=== PATIENT | female | born 1955 | race African-American/Black ===

== ENCOUNTER 2016-12-18 13:00 | Emergency (ER) | payer MEDICAID, OTHER ==
[~2016-12-18] VITALS: Ht 165.1 cm; Wt 70.3 kg
[~2016-12-18 13:00] MED LIST: ALBUTEROL SULF8.5 GM INH; AMOXICILLIN500 MG ORAL; CEPHALEXIN500 MG ORAL; CIPROFLOXACIN500 M2 ORAL; CYCLOBENZAPRINE10 MG ORAL; IBUPROFEN200 M2 ORAL; IBUPROFEN600 MG ORAL; LATANOPROST2.5 ML BOTH EYES; MACROBID100 MG ORAL; NITROFURANTOIN100 M2 ORAL; NORCO 5-325 TA1 EACH ORAL; PHENAZOPYRIDIN100 MG ORAL; PREVACID15 MG ORAL; PROMETHAZINE-D118 ML ORAL; TRAMADOL HCL50 MG ORAL; TYLENOL325 MG ORAL
[2016-12-18] MEDS ORDERED: Dicyclomine HCl 10mg/5ml oral soln ORAL ONE (13:30)
[2016-12-18] MEDS ORDERED: Mylanta II UD 30ml ORAL ONE (13:30)
[2016-12-18] MEDS ORDERED: Norco 10mg/325mg tab ORAL ONE (13:30)
[2016-12-18 13:48] LABS: MEAN CORPUSCULAR HEMOGLOBIN 27.1 PG (27.0-31.0); MEAN CORPUSCULAR HGB CONC 31.9 G/DL (32.0-36.0); MEAN CORPUSCULAR VOLUME 85 FL (80-99); MEAN PLATELET VOLUME 6.5 FL (6.5-10.1); PLATELET COUNT 228 K/UL (150-450); RED BLOOD COUNT 4.68 M/UL (4.20-5.40); RED CELL DISTRIBUTION WIDTH 11.7 % (11.6-14.8); WHITE BLOOD COUNT 2.6 K/UL (4.8-10.8)
[2016-12-18 13:50] VITALS: BP 138/66
[2016-12-18 14:14] LABS: TROPONIN I < 0.30 ng/mL (<=0.30)
[2016-12-18 14:17] LABS: ALANINE AMINOTRANSFERASE 90 U/L (3-33); ALBUMIN/GLOBULIN RATIO 1.5 (1.0-2.7); ANION GAP 14 (5-15); ASPARTATE AMINO TRANSFERASE 64 U/L (5-40); CALCIUM 9.2 mg/dL (8.6-10.2); CARBON DIOXIDE 26 mEQ/L (20-30); CHLORIDE 101 mEQ/L (98-107); CREATININE 0.8 mg/dL (0.5-0.9); GLOMERULAR FILTRATION RATE > 60 mL/min (>60); HEMOLYSIS 11; POTASSIUM 3.6 mEQ/L (3.4-4.9); SODIUM 141 mEQ/L (135-145); TOTAL PROTEIN 6.6 g/dL (6.6-8.7)
[2016-12-18 14:27] LABS: CKMB < 1.5 ng/mL (< 3.8)
[2016-12-18 14:33] LABS: BAND NEUTROPHILS % (MANUAL) 0 % (0-8); BASOPHILS % (MANUAL) 0 % (0-2); EOSINOPHILS % (MANUAL) 4 % (0-3); HYPOCHROMASIA 1+; LYMPHOCYTES % (MANUAL) 46 % (20-45); NEUTROPHILS % (MANUAL) 37 % (45-75); PLATELET ESTIMATE ADEQUATE; PLATELET MORPHOLOGY NORMAL; TOTAL CELLS COUNTED 100
[2016-12-18] MEDS ORDERED: ULTRAM50 MG ORAL (14:36)
[2016-12-18] MEDS ORDERED: PEPCID40 MG PO (14:36)
[2016-12-18 15:20] VITALS: BP 138/66
--- NOTE | 2016-12-19 07:17 | Emergency Room Report ---
History of Present Illness General Chief Complaint: Back Pain-No Injury Source: Patient Present Illness HPI Patient presents with complaints of mid back pain radiation towards the mid abdominal area Patient reports a sharp pain Denies any vomiting or diarrhea denies any fevers Patient reports that recently she was diagnosed by primary physician with scoliosis Denies any focal weakness There is radiation to the left upper quadrant as well Patient denies any chest pain or shortness of breath denies any dysuria frequency Allergies: Coded Allergies: No Known Allergies (Verified , 10/14/06) Patient History Past Medical History: see triage record Pertinent Family History: none Now: No Reviewed Nursing Documentation: PMH: Agreed, PSxH: Agreed Nursing Documentation-PMH Past Medical History: No Stated History Hx Cardiac Problems: Yes - THYROID Hx Hypertension: No Hx Pacemaker: No Hx Asthma: No Hx COPD: No Hx Diabetes: No Hx Cancer: No - CYST REMOVED FROM PIT[place] GL[place] Hx Gastrointestinal Problems: Yes - GERD, HERNIA SURGERY Hx Dialysis: No - HEP C Hx Neurological Problems: No Hx Cerebrovascular Accident: No Hx Seizures: No Review of Systems All Other Systems: negative except mentioned in HPI Physical Exam Vital Signs Date Time Temp Pulse Resp B/P Pulse Ox O2 Delivery O2 Flow Rate FiO2 12/18/16 13:07 98.1 78 16 140/70 98 Room Air Sp02 EP Interpretation: reviewed, normal General Appearance: well appearing, no apparent distress Head: normocephalic, atraumatic Eyes: bilateral eye EOMI, bilateral eye PERRL ENT: hearing grossly normal, normal pharynx, TMs + canals normal, uvula midline Neck: full range of motion, supple, no meningismus, no bony tend Respiratory: lungs clear, normal breath sounds, no rhonchi, no respiratory distress, no retraction, no accessory muscle use Cardiovascular #1: normal peripheral pulses, regular rate, rhythm, no edema, no gallop, no JVD, no murmur Gastrointestinal: normal bowel sounds, soft, no mass, no organomegaly, non- distended, no guarding, no hernia, no pulsatile mass, no rebound, tenderness - Palpable epigastric and left upper quadrant Genitourinary: no CVA tenderness Musculoskeletal: other - Patient subjectively has mid back pain as well lower thoracic spine T10-T11 region otherwise no midline step-off, and no paraspinal discomfort Neurologic: oriented x3, responsive, 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 as tested, motor strength/ tone normal, sensory intact Psychiatric: mood/affect normal Skin: normal color, no rash, warm/dry, palpation normal Lymphatic: normal inspection, no adenopathy Medical Decision Making Diagnostic Impression: Primary Impression: Back pain Additional Impression: abdominal pain ER Course With the history exam and presentation, multiple differentials considered, including but not limited to appendicitis, gastritis, cholecystitis, diverticulitis Patient's back discomfort also raises questions of possible vascular pathology Initial blood work is appropriate Patient has done that her there is a component of discomfort with the patient's scoliosis as well I did not obtain any further emergency imaging as the patient is otherwise stable for close outpatient followup Labs Test 12/18/16 13:35 White Blood Count 2.6 K/UL (4.8-10.8) Red Blood Count 4.68 M/UL (4.20-5.40) Hemoglobin 12.7 G/DL (12.0-16.0) Hematocrit 39.7 % (37.0-47.0) Mean Corpuscular Volume 85 FL (80-99) Mean Corpuscular Hemoglobin 27.1 PG (27.0-31.0) Mean Corpuscular Hemoglobin Concent 31.9 G/DL (32.0-36.0) Red Cell Distribution Width 11.7 % (11.6-14.8) Platelet Count 228 K/UL (150-450) Mean Platelet Volume 6.5 FL (6.5-10.1) Neutrophils (%) (Auto) % (45.0-75.0) Lymphocytes (%) (Auto) % (20.0-45.0) Monocytes (%) (Auto) % (1.0-10.0) Eosinophils (%) (Auto) % (0.0-3.0) Basophils (%) (Auto) % (0.0-2.0) Differential Total Cells Counted 100 Neutrophils % (Manual) 37 % (45-75) Lymphocytes % (Manual) 46 % (20-45) Monocytes % (Manual) 13 % (1-10) Eosinophils % (Manual) 4 % (0-3) Basophils % (Manual) 0 % (0-2) Band Neutrophils 0 % (0-8) Platelet Estimate Adequate Platelet Morphology Normal Hypochromasia 1+ Sodium Level 141 mEQ/L (135-145) Potassium Level 3.6 mEQ/L (3.4-4.9) Chloride Level 101 mEQ/L (98-107) Carbon Dioxide Level 26 mEQ/L (20-30) Anion Gap 14 (5-15) Blood Urea Nitrogen 12 mg/dL (7-23) Creatinine 0.8 mg/dL (0.5-0.9) Estimat Glomerular Filtration Rate > 60 mL/min (>60) Glucose Level 99 mg/dL (74-106) Calcium Level 9.2 mg/dL (8.6-10.2) Total Bilirubin 0.4 mg/dL (0.0-1.2) Aspartate Amino Transf (AST/SGOT) 64 U/L (5-40) Alanine Aminotransferase (ALT/SGPT) 90 U/L (3-33) Alkaline Phosphatase 57 U/L (35-104) Total Creatine Kinase 102 U/L (26-140) Creatine Kinase MB < 1.5 ng/mL (< 3.8) Creatine Kinase MB Relative Index Troponin I < 0.30 ng/mL (<=0.30) Total Protein 6.6 g/dL (6.6-8.7) Albumin 4.0 g/dL (3.5-5.2) Globulin 2.6 g/dL Albumin/Globulin Ratio 1.5 (1.0-2.7) EKG Diagnostic Results Rate: normal Rhythm: NSR ST Segments: no acute changes Rhythm Strip Diag. Results EP Interpretation: yes Rate: 62 Rhythm: NSR, no PVC's, no ectopy Last Vital Signs Date Time Temp Pulse Resp B/P Pulse Ox O2 Delivery O2 Flow Rate FiO2 12/18/16 15:20 98.1 76 16 138/66 98 Room Air Status: improved Disposition: HOME, SELF-CARE Condition: Improved Scripts Tramadol Hcl (ULTRAM*) 50 Mg Tablet 50 MG ORAL Q6H, #15 TAB 0 Refills Prov: GATO MCKEON.OSonya 12/18/16 Famotidine (PEPCID) 40 Mg Tablet 40 MG PO DAILY, #7 TAB 0 Refills Prov: GATO MCKEON.OSonya 12/18/16 Referrals: NOT CHOSEN [facility]/MD,REFERRING (PCP) Patient Instructions: Back Pain, Adult, Abdominal Pain, Adult Additional Instructions: Patient is provided with the discharge instructions notified to follow up with primary doctor in the next 2-3 days otherwise return to the er with any worsening symptoms. Please note that this report is being documented using [employer] technology. This can lead to erroneous entry secondary to incorrect interpretation by the dictating instrument. GATO MCKEON D.O. Dec 19, 2016 07:17
== END 2016-12-18 15:21 | disposition home or self-care (01) ==
LOC: EMR 14:24 → EDBD 14:24 → EMR 15:21
DX: M54.9 Dorsalgia, unspecified (principal); R10.9 Unspecified abdominal pain; M41.9 Scoliosis, unspecified; K21.9 Gastro-esophageal reflux disease without esophagitis; Z86.19 Personal history of other infectious and parasitic diseases
CPT/HCPCS: 36415; 80053; 82550; 82553; 84484; 85007; 85025; 93005; 99284

== ENCOUNTER 2017-02-06 20:16 | Emergency (ER) | payer OTHER ==
[~2017-02-06] VITALS: Ht 162.6 cm; Wt 89.8 kg
[~2017-02-06 20:16] MED LIST changes: +PEPCID40 MG PO; +ULTRAM50 MG ORAL
[2017-02-06] MEDS ORDERED: Ketorolac 60mg Inj IM ONE (21:00)
[2017-02-06] MEDS ORDERED: Norco 10mg/325mg tab ORAL ONE (21:00)
--- NOTE | 2017-02-06 21:17 | Emergency Room Report ---
History of Present Illness General Chief Complaint: Pain Source: Patient Present Illness HPI Patient present with pain to the left buttock area Radiation to the posterior thigh Patient reports pain ongoing for the past 2 days doesn't recall doing anything that let to the exacerbation Patient reports that she has had x-rays done before which her primary physician told her that scoliosis patient has also been told about sciatic problems in the past Denies any chest pain or shortness of breath denies any focal weakness pain is 8 /10 Points to the left posterior superior react crest with radiation as noted above Allergies: Coded Allergies: No Known Allergies (Verified , 10/14/06) Patient History Past Medical History: see triage record Pertinent Family History: none Reviewed Nursing Documentation: PMH: Agreed, PSxH: Agreed Nursing Documentation-PMH Hx Cardiac Problems: Yes - THYROID Hx Hypertension: No Hx Pacemaker: No Hx Asthma: No Hx COPD: No Hx Diabetes: No Hx Cancer: No - CYST REMOVED FROM [place] Hx Gastrointestinal Problems: Yes - GERD, HERNIA SURGERY Hx Dialysis: No - HEP C Hx Neurological Problems: No - SCIATICA Hx Cerebrovascular Accident: No Hx Seizures: No Review of Systems All Other Systems: negative except mentioned in HPI Physical Exam Vital Signs Date Time Temp Pulse Resp B/P Pulse Ox O2 Delivery O2 Flow Rate FiO2 02/06/17 20:22 97.7 93 18 161/81 96 Room Air Sp02 EP Interpretation: reviewed, normal General Appearance: well appearing Head: normocephalic, atraumatic Eyes: bilateral eye EOMI, bilateral eye PERRL ENT: normal pharynx Neck: full range of motion, supple Respiratory: lungs clear Cardiovascular #1: normal peripheral pulses, regular rate, rhythm, no edema Musculoskeletal: other - Patient has discomfort to palpation of the left posterior superior iliac crest, has pain with trying to leg raise on the left side otherwise neurovascularly intact Neurologic: alert, oriented x3, cupola tender III-XII nml as tested Skin: no rash Lymphatic: no adenopathy Medical Decision Making Diagnostic Impression: Primary Impression: Back pain Additional Impression: Sciatica ER Course Multiple differentials were considered Including but not limited to neurological, neurosurgical pathology Patient however has a fairly benign exam, likely in line with what appears to be likely sciatic flareup Patient has had multiple medications filled by different providers I did discuss with her the seat pain medicine prescribing campaign and the importance of close outpatient followup Chest X-Ray Diagnostic Results Chest X-Ray Ordered: No Last Vital Signs Date Time Temp Pulse Resp B/P Pulse Ox O2 Delivery O2 Flow Rate FiO2 02/06/17 20:22 97.7 93 18 161/81 96 Room Air Status: improved Disposition: HOME, SELF-CARE Condition: Improved Scripts Acetaminophen With Codeine (T#3) (TYLENOL #3 TAB*) Y Tab 1 TAB ORAL Q8H Y for For Pain, #10 TAB Prov: GATO MCKEON D.O. 02/06/17 Ibuprofen* (MOTRIN*) 600 Mg Tablet 600 MG ORAL Q8H Y for For Pain, #20 TAB 0 Refills Prov: GATO MCKEON D.O. 02/06/17 Additional Instructions: Patient is provided with the discharge instructions notified to follow up with primary doctor in the next 2-3 days otherwise return to the er with any worsening symptoms. Please note that this report is being documented using charity: [employer] technology. This can lead to erroneous entry secondary to incorrect interpretation by the dictating instrument. GATO MCKEON D.O. Feb 06, 2017 21:17
[2017-02-06] MEDS ORDERED: IBUPROFEN600 MG ORAL (21:18)
[2017-02-06] MEDS ORDERED: ACETAMINOPHEN-1 EAC1 ORAL (21:18)
[2017-02-06 21:28] VITALS: BP 152/84
[2017-02-06 21:30] VITALS: BP 152/84
== END 2017-02-06 21:31 | disposition home or self-care (01) ==
LOC: EMR 21:00
DX: M54.9 Dorsalgia, unspecified (principal); M54.30 Sciatica, unspecified side; K21.9 Gastro-esophageal reflux disease without esophagitis; Z86.19 Personal history of other infectious and parasitic diseases
CPT/HCPCS: 96372; 99284

== ENCOUNTER 2017-12-31 08:17 | Emergency (ER) | payer OTHER ==
[~2017-12-31] VITALS: Ht 154.9 cm; Wt 86.2 kg
[~2017-12-31 08:17] MED LIST changes: +ACETAMINOPHEN-1 EAC1 ORAL
[2017-12-31] MEDS ORDERED: Sodium Chloride 500ML 500 ML IV ONE (08:54)
[2017-12-31] MEDS ORDERED: Morphine Sulfate 4mg/ml Inj IVP ONE (09:00)
[2017-12-31] MEDS ORDERED: Isovue-300 100ml vial INJ ONE (09:00)
[2017-12-31 09:23] LABS: HEMATOCRIT 39.6 % (37.0-47.0); HEMOGLOBIN 13.1 G/DL (12.0-16.0); MEAN CORPUSCULAR VOLUME 83 FL (80-99); PLATELET COUNT 203 K/UL (150-450); RED BLOOD COUNT 4.77 M/UL (4.20-5.40); RED CELL DISTRIBUTION WIDTH 11.4 % (11.6-14.8); WHITE BLOOD COUNT 2.5 K/UL (4.8-10.8)
[2017-12-31 09:23] LABS: APPEARANCE,URINE CLEAR; BILIRUBIN, URINE NEGATIVE (NEGATIVE); COLOR,URINE PALE YELLOW; GLUCOSE, URINE (UA) NEGATIVE (NEGATIVE); KETONES,URINE NEGATIVE (NEGATIVE); LEUKOCYTE ESTERASE ,URINE 1+ (NEGATIVE); NITRITE,URINE NEGATIVE (NEGATIVE); PH,URINE 6 (4.5-8.0); PROTEIN,URINE NEGATIVE (NEGATIVE); UROBILINOGEN,URINE NORMAL MG/DL (0.0-1.0)
[2017-12-31 09:28] VITALS: BP 147/68
[2017-12-31 09:35] LABS: ANION GAP 10 mmol/L (5-15); BLOOD UREA NITROGEN 13 mg/dL (7-18); CALCIUM 9.4 MG/DL (8.5-10.1); CARBON DIOXIDE 25 MMOL/L (21-32); CHLORIDE 106 MMOL/L (98-107); CREATININE 0.7 MG/DL (0.55-1.30); POTASSIUM 4.5 MMOL/L (3.5-5.1); SODIUM 141 MMOL/L (136-145)
[2017-12-31 09:39] LABS: ALANINE AMINOTRANSFERASE 94 U/L (12-78); ALBUMIN 3.5 G/DL (3.4-5.0); ALBUMIN/GLOBULIN RATIO 0.9 (1.0-2.7); ALKALINE PHOSPHATASE 60 U/L (46-116); ASPARTATE AMINO TRANSFERASE 65 U/L (15-37); BILIRUBIN,TOTAL 0.5 MG/DL (0.2-1.0)
--- NOTE | 2017-12-31 10:34 | Emergency Room Report ---
History of Present Illness General Chief Complaint: Abdominal Pain Source: Patient Present Illness HPI 62-year-old female presents ED complaining of abdominal pain. Left upper quadrant, under the ribs, 7 out of 10, sharp, radiating to the back. On and off for the last 2 weeks. Denies chest pain or shortness of breath. Denies fevers or chills. Denies nausea or vomiting. No other aggravating or relieving factors. Denies any other associated symptoms Allergies: Coded Allergies: ASPIRIN (Verified Allergy, Unknown, 12/31/17) IBUPROFEN (Verified Allergy, Unknown, 12/31/17) Patient History Past Medical History: GERD, other - diverticulitis Past Surgical History: other - hernia repair Pertinent Family History: none Social History: Denies: smoking, alcohol use, drug use Now: No Immunizations: UTD Reviewed Nursing Documentation: PMH: Agreed; PSxH: Agreed Nursing Documentation-PMH Past Medical History: No History, Except For Hx Cardiac Problems: No Hx Hypertension: No Hx Pacemaker: No Hx Asthma: No Hx COPD: No Hx Diabetes: No Hx Cancer: No Hx Gastrointestinal Problems: Yes - GERD, HERNIA SURGERY, Diverticulitis Hx Dialysis: No - HEP C Hx Neurological Problems: No - SCIATICA Hx Cerebrovascular Accident: No Hx Seizures: No Review of Systems All Other Systems: negative except mentioned in HPI Physical Exam Vital Signs Date Time Temp Pulse Resp B/P (MAP) Pulse Ox O2 Delivery O2 Flow Rate FiO2 12/31/17 08:34 98.2 74 16 150/82 98 Room Air 98.2 Sp02 EP Interpretation: reviewed, normal General Appearance: no apparent distress, alert, GCS 15, non-toxic Head: normocephalic, atraumatic Eyes: bilateral eye normal inspection, bilateral eye PERRL ENT: hearing grossly normal, normal pharynx, no angioedema, normal voice Neck: full range of motion, supple/symm/no masses Respiratory: chest non-tender, lungs clear, normal breath sounds, speaking full sentences Cardiovascular #1: regular rate, rhythm, no edema Cardiovascular #2: 2+ carotid (R), 2+ carotid (L), 2+ radial (R), 2+ radial (L) , 2+ dorsalis pedis (R), 2+ dorsalis pedis (L) Gastrointestinal: normal bowel sounds, soft, non-distended, no guarding, no rebound, tenderness - LUQ Rectal: deferred Genitourinary: normal inspection, no CVA tenderness Musculoskeletal: back normal, gait/station normal, normal range of motion, non- tender Neurologic: alert, oriented x3, responsive, motor strength/tone normal, sensory intact, speech normal Psychiatric: judgement/insight normal, memory normal, mood/affect normal, no suicidal/homicidal ideation Reflexes: 3+ bicep (R), 3+ bicep (L), 3+ tricep (R), 3+ tricep (L), 3+ knee (R) , 3+ knee (L) Skin: normal color, no rash, warm/dry, well hydrated Lymphatic: no adenopathy Medical Decision Making Diagnostic Impression: Primary Impression: Abdominal pain Qualified Codes: R10.12 - Left upper quadrant pain ER Course Hospital Course 62-year-old F presents to ED with LUQ abdominal pain Differential diagnosis includes-appendicitis, cholecystitis, small bowel obstruction, gastritis, Clinical course Patient placed on stretcher. Reviewed EMR. Patient has been here multiple times for back pain and other pain related complaints. Patient has documented pain in the left upper quadrant previously but has been attributed to her scoliosis. After initial history and physical I ordered labs, IV fluids, pain medications and CT scan Labs - no leukocytosis, electrolytes ok, LFTs normal, UA unremarkable CT scan shows no acute pathology, L renal cyst and ventral hernia documented I discussed findings with patient. Agree the patient be safely discharged to home pending outpatient follow-up. Patient agrees with plan I feel this is a highly complex case requiring extensive working including EKG/ Rhythm strip, Xray/CT/US, Blood/urine lab work, repeat exams while in ED, and administration of strong opiates/narcotics for pain control, admission to hospital or close patient follow up. Diagnosis - abdominal pain Stable and discharged to home with Rx Tramadol. Followup with PMD. Return to ED if symptoms recur or worsen Labs Test 12/31/17 08:37 12/31/17 09:13 Urine Color Pale yellow Urine Appearance Clear Urine pH 6 (4.5-8.0) Urine Specific [place] 1.010 (1.005-1.035) Urine Protein Negative (NEGATIVE) Urine Glucose (UA) Negative (NEGATIVE) Urine Ketones Negative (NEGATIVE) Urine Occult Blood 3+ (NEGATIVE) Urine Nitrite Negative (NEGATIVE) Urine Bilirubin Negative (NEGATIVE) Urine Urobilinogen Normal MG/DL (0.0-1.0) Urine Leukocyte Esterase 1+ (NEGATIVE) Urine RBC 2-4 /HPF (0 - 2) Urine WBC 0-2 /HPF (0 - 2) Urine Squamous Epithelial Cells Few /LPF (NONE/OCC) Urine Bacteria Occasional /HPF (NONE) White Blood Count 2.5 K/UL (4.8-10.8) Red Blood Count 4.77 M/UL (4.20-5.40) Hemoglobin 13.1 G/DL (12.0-16.0) Hematocrit 39.6 % (37.0-47.0) Mean Corpuscular Volume 83 FL (80-99) Mean Corpuscular Hemoglobin 27.5 PG (27.0-31.0) Mean Corpuscular Hemoglobin Concent 33.1 G/DL (32.0-36.0) Red Cell Distribution Width 11.4 % (11.6-14.8) Platelet Count 203 K/UL (150-450) Mean Platelet Volume 6.8 FL (6.5-10.1) Neutrophils (%) (Auto) % (45.0-75.0) Lymphocytes (%) (Auto) % (20.0-45.0) Monocytes (%) (Auto) % (1.0-10.0) Eosinophils (%) (Auto) % (0.0-3.0) Basophils (%) (Auto) % (0.0-2.0) Sodium Level 141 MMOL/L (136-145) Potassium Level 4.5 MMOL/L (3.5-5.1) Chloride Level 106 MMOL/L (98-107) Carbon Dioxide Level 25 MMOL/L (21-32) Anion Gap 10 mmol/L (5-15) Blood Urea Nitrogen 13 mg/dL (7-18) Creatinine 0.7 MG/DL (0.55-1.30) Estimat Glomerular Filtration Rate > 60 mL/min (>60) Glucose Level 103 MG/DL (74-106) Calcium Level 9.4 MG/DL (8.5-10.1) Total Bilirubin 0.5 MG/DL (0.2-1.0) Aspartate Amino Transf (AST/SGOT) 65 U/L (15-37) Alanine Aminotransferase (ALT/SGPT) 94 U/L (12-78) Alkaline Phosphatase 60 U/L (46-116) Total Protein 7.4 G/DL (6.4-8.2) Albumin 3.5 G/DL (3.4-5.0) Globulin 3.9 g/dL Albumin/Globulin Ratio 0.9 (1.0-2.7) Lipase 108 U/L (73-393) CT/MRI/US Diagnostic Results CT/MRI/US Diagnostic Results : Imaging Test Ordered: CT A/P Impression 6 mm left posterior renal cyst. The kidneys are normal in size and contour. No lesion or hydronephrosis. Ventral hernia with fascial defect measuring 2 cm containing fat only. The appendix is unremarkable, as is the rest of the GI tract. Stable 10 mm calcification seen in the fundal fibroid. Last Vital Signs Date Time Temp Pulse Resp B/P (MAP) Pulse Ox O2 Delivery O2 Flow Rate FiO2 12/31/17 10:13 98.2 12/31/17 09:28 76 23 147/68 100 Room Air Status: improved Disposition: HOME, SELF-CARE Condition: Stable Scripts Tramadol Hcl* (ULTRAM*) 50 Mg Tablet 50 MG ORAL Q6H PRN for For Pain, #30 TAB 0 Refills Prov: Adonis Pantoja MD 12/31/17 Referrals: [facility]ERRED [facility],REFERRING (PCP) Adonis Pantoja MD December 31, 2017 10:34
[2017-12-31] MEDS ORDERED: TRAMADOL HCL50 MG ORAL (11:55)
[2017-12-31 12:04] VITALS: BP 132/62
--- NOTE | 2018-01-05 11:57 | Diagnostic Imaging Report ---
INDICATION: Abdominal pain TECHNIQUE: Multiple, contiguous axial cuts of the abdomen and pelvis are obtained from the lung bases to the ischial tuberosities following the administration of IV contrast. Sagittal and coronal reformatted images are available. One or more of the following dose reduction techniques were used: automated exposure control, adjustment of the mA and/or kV according to patient size, use of iterative reconstruction technique. COMPARISON: CT dated 06/16/05 FINDINGS: The lung bases are clear. The liver and spleen are normal in size and free of mass lesions. The gallbladder, bile ducts and pancreas are normal. The adrenal gland are unremarkable. 6 mm left posterior renal cyst. The kidneys are normal in size and contour. No lesion or hydronephrosis. Ventral hernia with fascial defect measuring 2 cm containing fat only. The appendix is unremarkable, as is the rest of the GI tract. Stable 10 mm calcification seen in the fundal fibroid. Aorta is normal caliber. No adenopathy or extraluminal air. The osseous structures are normal IMPRESSION: 1. 6 mm left posterior renal cyst. 2. Ventral hernia with fascial defect measuring 2 cm containing fat only. 3. Stable 10 mm calcification seen in the fundal fibroid. CTDI: 17.25 mGy DLP: 898.95 mGycm
== END 2017-12-31 12:06 | disposition home or self-care (01) ==
LOC: EMR 08:48
DX: R10.12 Left upper quadrant pain (principal); K21.9 Gastro-esophageal reflux disease without esophagitis; Z88.6 Allergy status to analgesic agent
CPT/HCPCS: 36415; 74177; 80053; 81003; 83690; 85007; 85025; 96360; 96374; 96375; 99284; J2270; J7040; Q9967

== ENCOUNTER 2018-05-10 15:17 | Emergency (ER) | payer OTHER ==
[~2018-05-10] VITALS: Ht 162.6 cm; Wt 86.2 kg
[2018-05-10] MEDS: Metoclopramide 10mg/2ml Inj IVP ONE ×2 (16:15→17:15)
--- NOTE | 2018-05-10 16:54 | Diagnostic Imaging Report ---
Indication: Headache Technique: Continuous helical CT scanning of the head was performed without intravenous contrast material. Axial and coronal 5 mm sections were generated. Radiation dose was minimized using automated exposure control Dose: Total Dose Length Product - DLP 1411.[address] Dose Index - CTDIvol(s) 70.38 mGy. Comparison: 02/18/2016 Findings: The ventricular system is normal in size and configuration. There is no shift of midline structures. No abnormal extra-axial fluid collections are noted. There is no evidence of intracerebral bleeding. No other abnormal high or low density areas are noted within the brain. Normal schneider-white differentiation. Visualized orbits and sinuses are unremarkable. The calvarium is intact. There is no significant interim change Impression: Normal CT scan of the head without contrast material. The CT scanner at [facility] is accredited by the [employer] and the scans are performed using protocols designed to limit radiation exposure to as low as reasonably achievable to attain images of sufficient resolution adequate for diagnostic evaluation.
[2018-05-10 17:11] LABS: HEMATOCRIT 41.4 % (37.0-47.0); HEMOGLOBIN 13.7 G/DL (12.0-16.0); MEAN CORPUSCULAR VOLUME 83 FL (80-99); PLATELET COUNT 245 K/UL (150-450); RED BLOOD COUNT 5.01 M/UL (4.20-5.40); RED CELL DISTRIBUTION WIDTH 10.9 % (11.6-14.8); WHITE BLOOD COUNT 2.5 K/UL (4.8-10.8)
[2018-05-10] MEDS: Sodium Chloride 500ML 500 ML IV ONE ×2 (17:15→17:20)
[2018-05-10 17:29] LABS: ANION GAP 5 mmol/L (5-15); BLOOD UREA NITROGEN 12 mg/dL (7-18); CALCIUM 9.5 MG/DL (8.5-10.1); CARBON DIOXIDE 31 MMOL/L (21-32); CHLORIDE 105 MMOL/L (98-107); CREATININE 0.8 MG/DL (0.55-1.30); POTASSIUM 3.9 MMOL/L (3.5-5.1); SODIUM 141 MMOL/L (136-145)
[2018-05-10 17:36] LABS: ALANINE AMINOTRANSFERASE 76 U/L (12-78); ALBUMIN 3.5 G/DL (3.4-5.0); ALKALINE PHOSPHATASE 71 U/L (46-116); ASPARTATE AMINO TRANSFERASE 51 U/L (15-37); BILIRUBIN,TOTAL 0.3 MG/DL (0.2-1.0)
[2018-05-10] MEDS ORDERED: TYLENOL EXTRA500 MG ORAL (17:46)
[2018-05-10 18:12] VITALS: BP 117/56
--- NOTE | 2018-05-10 18:44 | Emergency Room Report ---
History of Present Illness General Chief Complaint: Headache Source: Patient Present Illness HPI 62-year-old female presents ED for evaluation. Complaining of headache 4 days. Throbbing, left-sided, 10 out of 10, nonradiating. Denies photophobia or blurry vision. Denies nausea or vomiting. States she feels weak. Denies fevers or chills. Denies chest pain or shortness of breath. No other aggravating relieving factors. Denies any other associated symptoms Allergies: Coded Allergies: ASPIRIN (Verified Allergy, Unknown, 12/31/17) IBUPROFEN (Verified Allergy, Unknown, 12/31/17) Patient History Past Medical History: GERD, other - diverticulitis Pertinent Family History: none Social History: Denies: smoking, alcohol use, drug use Now: No Immunizations: UTD Reviewed Nursing Documentation: PMH: Agreed; PSxH: Agreed Nursing Documentation-PMH Hx Cardiac Problems: No Hx Hypertension: No Hx Pacemaker: No Hx Asthma: No Hx COPD: No Hx Diabetes: No Hx Cancer: No Hx Gastrointestinal Problems: Yes - GERD, HERNIA SURGERY, Diverticulitis Hx Dialysis: No - HEP C Hx Neurological Problems: No - SCIATICA Hx Cerebrovascular Accident: No Hx Seizures: No Review of Systems All Other Systems: negative except mentioned in HPI Physical Exam Vital Signs Date Time Temp Pulse Resp B/P (MAP) Pulse Ox O2 Delivery O2 Flow Rate FiO2 05/10/18 15:37 98.2 83 18 118/84 98 Room Air 98.2 Sp02 EP Interpretation: reviewed, normal General Appearance: no apparent distress, alert, GCS 15, non-toxic Head: normocephalic, atraumatic Eyes: bilateral eye normal inspection, bilateral eye PERRL ENT: hearing grossly normal, normal pharynx, no angioedema, normal voice Neck: full range of motion, supple, no meningismus, supple/symm/no masses Respiratory: chest non-tender, lungs clear, normal breath sounds, speaking full sentences Cardiovascular #1: regular rate, rhythm, no edema Cardiovascular #2: 2+ carotid (R), 2+ carotid (L), 2+ radial (R), 2+ radial (L) , 2+ dorsalis pedis (R), 2+ dorsalis pedis (L) Gastrointestinal: normal bowel sounds, non tender, soft, non-distended, no guarding, no rebound Rectal: deferred Genitourinary: normal inspection, no CVA tenderness Musculoskeletal: back normal, gait/station normal, normal range of motion, non- tender Neurologic: alert, oriented x3, responsive, 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, motor strength/tone normal, sensory intact, cerebellar normal, speech normal Psychiatric: judgement/insight normal, memory normal, mood/affect normal, no suicidal/homicidal ideation Reflexes: 3+ bicep (R), 3+ bicep (L), 3+ tricep (R), 3+ tricep (L), 3+ knee (R) , 3+ knee (L) Skin: normal color, no rash, warm/dry, well hydrated Lymphatic: no adenopathy Medical Decision Making Diagnostic Impression: Primary Impression: Headache Qualified Codes: R51 - Headache ER Course Hospital Course 62 yo F presents c/o headache, weakness Differential diagnoses include: tension headache, migraine, dehydration, intracranial bleed Clinical course Patient placed on stretcher. After initial history and physical I ordered labs , IV fluids, Reglan, Tylenol, CT Head CT Head unremarkable EKG - NSR, no acute ischemic changes interpreted by me Labs reviewed- electrolytes okay, no leukocytosis, hemoglobin/hematocrit stable Discussed findings with patient. Patient feels better. Wishes to be discharged. Patient safe for discharge with close outpatient follow-up i. I feel this is a highly complex case requiring extensive working including EKG/Rhythm strip, Xray/CT/US, Blood/urine lab work, repeat exams while in ED, and administration of strong opiates/narcotics for pain control, admission to hospital or close patient follow up. Diagnosis - headache stable and discharged to home. f/up with PMD. return to ED if symptoms recur/ worsen. Labs Test 05/10/18 16:30 05/10/18 17:00 Urine HCG, Qualitative Negative (NEGATIVE) White Blood Count 2.5 K/UL (4.8-10.8) Red Blood Count 5.01 M/UL (4.20-5.40) Hemoglobin 13.7 G/DL (12.0-16.0) Hematocrit 41.4 % (37.0-47.0) Mean Corpuscular Volume 83 FL (80-99) Mean Corpuscular Hemoglobin 27.3 PG (27.0-31.0) Mean Corpuscular Hemoglobin Concent 33.0 G/DL (32.0-36.0) Red Cell Distribution Width 10.9 % (11.6-14.8) Platelet Count 245 K/UL (150-450) Mean Platelet Volume 5.7 FL (6.5-10.1) Neutrophils (%) (Auto) % (45.0-75.0) Lymphocytes (%) (Auto) % (20.0-45.0) Monocytes (%) (Auto) % (1.0-10.0) Eosinophils (%) (Auto) % (0.0-3.0) Basophils (%) (Auto) % (0.0-2.0) Differential Total Cells Counted 100 Neutrophils % (Manual) 24 % (45-75) Lymphocytes % (Manual) 62 % (20-45) Monocytes % (Manual) 5 % (1-10) Eosinophils % (Manual) 5 % (0-3) Basophils % (Manual) 3 % (0-2) Band Neutrophils 1 % (0-8) Nucleated Red Blood Cells 1 /100 WBC Platelet Estimate Adequate Platelet Morphology Normal Polychromasia 1+ Sodium Level 141 MMOL/L (136-145) Potassium Level 3.9 MMOL/L (3.5-5.1) Chloride Level 105 MMOL/L (98-107) Carbon Dioxide Level 31 MMOL/L (21-32) Anion Gap 5 mmol/L (5-15) Blood Urea Nitrogen 12 mg/dL (7-18) Creatinine 0.8 MG/DL (0.55-1.30) Estimat Glomerular Filtration Rate > 60 mL/min (>60) Glucose Level 91 MG/DL (74-106) Calcium Level 9.5 MG/DL (8.5-10.1) Total Bilirubin 0.3 MG/DL (0.2-1.0) Aspartate Amino Transf (AST/SGOT) 51 U/L (15-37) Alanine Aminotransferase (ALT/SGPT) 76 U/L (12-78) Alkaline Phosphatase 71 U/L (46-116) Total Protein 7.1 G/DL (6.4-8.2) Albumin 3.5 G/DL (3.4-5.0) Globulin 3.6 g/dL Albumin/Globulin Ratio 1.0 (1.0-2.7) EKG Diagnostic Results Rate: normal Rhythm: NSR ST Segments: no acute changes ASA given to the pt in ED: No Rhythm Strip Diag. Results EP Interpretation: yes Rhythm: NSR, no PVC's, no ectopy CT/MRI/US Diagnostic Results CT/MRI/US Diagnostic Results : Imaging Test Ordered: CT head Impression no acute process Last Vital Signs Date Time Temp Pulse Resp B/P (MAP) Pulse Ox O2 Delivery O2 Flow Rate FiO2 05/10/18 18:12 86 21 117/56 98 Room Air 05/10/18 18:12 98.2 98.2 Status: improved Disposition: HOME, SELF-CARE Condition: Stable Scripts Acetaminophen* (TYLENOL EXTRA STRENGTH*) 500 Mg Tablet 500 MG ORAL Q8H PRN for Prn Headache/Temp > 101, #30 TAB 0 Refills Prov: Adonis Pantoja MD 05/10/18 Referrals: [facility],REFERR[facility] (PCP) Patient Instructions: General Headache Without Cause Adonis Pantoja MD May 10, 2018 18:44
--- NOTE | 2018-05-14 16:04 | Cardiology Report ---
APPROVED REPORT EKG Measurement Heart [id number] Normal sinus rhythm with sinus arrhythmia Normal ECG
== END 2018-05-10 18:12 | disposition home or self-care (01) ==
LOC: EMR 16:04
DX: R51 Headache (principal)
CPT/HCPCS: 36415; 70450; 80053; 81025; 85007; 85025; 93005; 96374; 99284; J2765

== ENCOUNTER 2020-10-23 14:15 | Emergency (ER) | payer OTHER ==
[~2020-10-23] VITALS: Ht 162.6 cm; Wt 86.2 kg
[~2020-10-23 14:15] MED LIST changes: +TYLENOL EXTRA500 MG ORAL
--- NOTE | 2020-10-23 15:59 | Emergency Room Report ---
History of Present Illness General Chief Complaint: Earache Source: Patient Present Illness HPI Patient is a 65-year-old female presents for increased right-sided facial pain. Reports having onset of symptoms approximate 2 weeks. Reports having increased tinnitus as well as nasal congestion. Denies any fever. Reports of increased generalized body aches. Had prior history of Covid. Reports having allergy to aspirin and ibuprofen. States that she had previous history of gastritis. Reports taking Tylenol with codeine for pain without improvement. Denies any visual changes. Has prior history of glaucoma. 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 Patient History Past Medical History: see triage record Reviewed Nursing Documentation: PMH: Agreed; PSxH: Agreed Nursing Documentation-PMH Past Medical History: No History, Except For Hx Cardiac Problems: No Hx Hypertension: No Hx Pacemaker: No Hx Asthma: No Hx COPD: No Hx Diabetes: No Hx Cancer: No Hx Gastrointestinal Problems: Yes - GERD, HERNIA SURGERY, Diverticulitis Hx Dialysis: No - HEP C Hx Neurological Problems: No - SCIATICA, glaucoma Hx Cerebrovascular Accident: No Hx Seizures: No Review of Systems All Other Systems: negative except mentioned in HPI Physical Exam Vital Signs Date Time Temp Pulse Resp B/P (MAP) Pulse Ox O2 Delivery O2 Flow Rate FiO2 10/23/20 14:20 97.9 89 20 143/73 (96) 95 Room Air Sp02 EP Interpretation: reviewed, normal General Appearance: normal inspection, well appearing, no apparent distress, alert, GCS 15, obese, Chronically Ill Head: atraumatic ENT: normal ENT inspection, hearing grossly normal, normal voice Neck: normal inspection, full range of motion, supple, no bony tend Respiratory: normal inspection, lungs clear, normal breath sounds, no respiratory distress, no retraction, no wheezing Cardiovascular #1: regular rate, rhythm, no edema Gastrointestinal: normal inspection, normal bowel sounds, non tender, soft, no guarding, no hernia Genitourinary: no CVA tenderness Musculoskeletal: normal inspection, back normal, normal range of motion, digits/nails normal Neurologic: alert, oriented x3, responsive, speech normal, normal inspection Psychiatric: normal inspection, judgement/insight normal, mood/affect normal Skin: no rash Medical Decision Making Diagnostic Impression: Primary Impression: TMJ arthritis ER Course Patient presents for increased right-sided earache. Differential diagnosis include was not limited to arthritis, TMJ, among others. Patient has a benign exam and does not appear to require any imaging or laboratory testing at this time.Patient is a nonfocal neurologic exam. Does not appear to have any evidence of acute CVA or temporal artery tenderness. Patient was given prescription for prednisone. She is given prednisone in the emergency d epartment. Was advised to follow-up with her primary care physician for recheck and to return if any worsening of condition or any other concerns. This medical record is generated with [email or web address] valet cashier software. There may be some valet cashier discrepancies related to use of this software Last Vital Signs Date Time Temp Pulse Resp B/P (MAP) Pulse Ox O2 Delivery O2 Flow Rate FiO2 10/23/20 14:20 97.9 89 20 143/73 (96) 95 Room Air Status: improved Disposition: HOME, SELF-CARE Condition: Stable Scripts Prednisone* (PREDNISONE*) 20 Mg Tablet 40 MG ORAL DAILY, #10 TAB Prov: Yunier Barkley MD 10/23/20 Yunier Barkley MD Oct 23, 2020 15:59
[2020-10-23] MEDS ORDERED: PREDNISONE20 MG ORAL (16:01)
[2020-10-23] MEDS ORDERED: AMOXICILLIN500 M1 PO (16:11)
[2020-10-23 16:37] VITALS: BP 143/73
--- NOTE | 2020-10-23 16:39 | NUR ---
discharged home with instruction and rx follow up with pmd
== END 2020-10-23 16:40 | disposition home or self-care (01) ==
LOC: EMR 16:13
DX: M26.641 Arthritis of right temporomandibular joint (principal); Z86.19 Personal history of other infectious and parasitic diseases; Z86.16 Personal history of COVID-19; Z88.6 Allergy status to analgesic agent
CPT/HCPCS: 99282